=== PATIENT | female | born 1975 ===

== ENCOUNTER 2018-04-23 13:35 | Inpatient (IN) | payer OTHER ==
[~2018-04-23] VITALS: Ht 175.3 cm; Wt 78.0 kg
== END 2018-06-05 14:45 | disposition home or self-care, planned readmission (81) | DRG 775 ==
LOC: OB/GYN 06-03 13:38 → LDR 06-03 13:38 → OB/GYN 06-03 18:34 → LDR 06-04 12:00 → OB/GYN 06-05 14:45
PROC: 10E0XZZ Delivery of Products of Conception, External Approach (ICD-10-PCS; principal; 2018-06-03)
PROC: 10907ZC Drainage of Amniotic Fluid, Therapeutic from Products of Conception, Via Natural or Artificial Opening (ICD-10-PCS; 2018-06-03)
PROC: 0W8NXZZ Division of Female Perineum, External Approach (ICD-10-PCS; 2018-06-03)
PROC: 3E033VJ Introduction of Other Hormone into Peripheral Vein, Percutaneous Approach (ICD-10-PCS; 2018-06-03)
PROC: 4A1HXCZ Monitoring of Products of Conception, Cardiac Rate, External Approach (ICD-10-PCS; 2018-06-03)
DX: O80 Encounter for full-term uncomplicated delivery (principal); Z3A.39 39 weeks gestation of pregnancy; Z37.0 Single live birth